=== PATIENT | male | born 1940 | race Caucasian/White ===

== ENCOUNTER 2019-07-15 06:10 | Day surgery (SDC) | payer MEDICARE ==
[2019-07-15] VITALS (18 sets, daily range): BP systolic 130–174; BP diastolic 53–103
[~2019-07-15] VITALS: Ht 176.5 cm; Wt 82.8 kg
[2019-07-15] MEDS ORDERED: lidocaine 2% viscous 15 ML cup ***bronch room only MM ONE ×2 (06:30→07:32)
[2019-07-15] MEDS ORDERED: morphine 10mg/ml inj. IM ONE (06:30)
[2019-07-15] MEDS ORDERED: phenylephrine 1% Nasal spray (extra-strength) 15 ML bottle **bronch room NS ONE ×2 (06:35→07:32)
[2019-07-15] MEDS ORDERED: LIDOCAINE 4% (40MG/ML) topical solution 50ml **BRONCH ONLY MM ONE (06:35)
[2019-07-15] MEDS ORDERED: LEVO112T5 PO (06:40)
[2019-07-15] MEDS ORDERED: INDO-12 PO (06:40)
[2019-07-15] MEDS ORDERED: METO25TA6 PO (06:40)
[2019-07-15 06:47] LABS: BASOPHILS # (AUTO) 0.1 X10'3 (0-0.2); BASOPHILS % (AUTO) 1.1 % (0-1); EOSINOPHILS # (AUTO) 0.1 X10'3 (0-0.9); EOSINOPHILS % (AUTO) 2.6 % (0-6); HEMATOCRIT 44.1 % (42.0-52.0); HEMOGLOBIN 15.6 g/dl (14.0-17.9); LYMPHOCYTES # (AUTO) 1.7 X10'3 (1.1-4.8); LYMPHOCYTES % (AUTO) 29.2 % (21-51); MEAN CORPUSCULAR HEMOGLOBIN 32.1 PG (27.0-31.0); MEAN CORPUSCULAR HGB CONC 35.5 g/dL (33.0-36.5); MEAN CORPUSCULAR VOLUME 90.4 FL (78-98); MEAN PLATELET VOLUME 7.7 FL (7.4-10.4); MONOCYTES # (AUTO) 0.5 X10'3 (0-0.9); NEUTROPHILS # (AUTO) 3.4 X10'3 (1.8-7.7); NEUTROPHILS % (AUTO) 59.1 % (42-75); PLATELET COUNT 213 X10'3 (140-440); RED BLOOD COUNT 4.88 X10'6 (4.70-6.10); RED CELL DISTRIBUTION WIDTH 13.3 % (11.5-14.5); WHITE BLOOD COUNT 5.7 X10'3 (4.5-11.0)
[2019-07-15] MEDS ORDERED: ZINC50TA60 (06:56)
[2019-07-15] MEDS ORDERED: [UNRECOGNIZED DRUG - CODE] PO (06:56)
[2019-07-15] MEDS ORDERED: LACT1CAP73 PO (06:56)
[2019-07-15] MEDS ORDERED: UBID100C45 PO (06:56)
[2019-07-15] MEDS ORDERED: VITA1CAP (06:56)
[2019-07-15] MEDS ORDERED: MULT-1085 PO (06:56)
[2019-07-15] MEDS ORDERED: [UNRECOGNIZED DRUG - CODE] (06:56)
[2019-07-15] MEDS ORDERED: ASCO500C15 PO (06:56)
[2019-07-15] MEDS ORDERED: ESOM20CA38 (06:56)
[2019-07-15] MEDS ORDERED: OMEG1CAP13 PO (06:56)
[2019-07-15] MEDS ORDERED: ATOR40TA PO (06:56)
[2019-07-15] MEDS ORDERED: fentaNYL/PF 50MCG/1 ML 2ML syringe IV STA (07:23)
[2019-07-15] MEDS ORDERED: MIDAZolam 5mg/ml 2ml vial IV STA (07:23)
[2019-07-15] MEDS ORDERED: LIDOCAINE 4% (40MG/ML) topical solution 50ml **BRONCH ONLY ONE (07:32)
== END 2019-07-15 10:50 | disposition home or self-care (01) ==
LOC: SSTAY O 06:10
PROVIDERS: ATTEND Internal Medicine Pulmonary Disease
DX: R04.2 Hemoptysis (principal); R91.1 Solitary pulmonary nodule; I10 Essential (primary) hypertension; E78.5 Hyperlipidemia, unspecified; I25.2 Old myocardial infarction; I25.10 Atherosclerotic heart disease of native coronary artery without angina pectoris; Z98.61 Coronary angioplasty status; Z77.090 Contact with and (suspected) exposure to asbestos; Z85.3 Personal history of malignant neoplasm of breast; Z79.899 Other long term (current) drug therapy; Z82.49 Family history of ischemic heart disease and other diseases of the circulatory system
CPT/HCPCS: 31622; 36415; 82378; 85025; 87070; 94640; 94760; J2250; J2270; J3010; 76499; 88108; 88305

== ENCOUNTER 2019-08-14 05:05 | Inpatient (IN) | payer MEDICARE, OTHER ==
[2019-08-13 14:19] LABS: CLARITY,URINE CLEAR (Clear); COLOR,URINE STRAW (Yellow); GLUCOSE, URINE NEGATIVE (Neg); KETONES,URINE NEGATIVE (Neg); LEUKOCYTE ESTERASE ,URINE NEGATIVE (Neg); NITRITES, URINE NEGATIVE (Neg); OCCULT BLOOD,URINE NEGATIVE (Neg); PH,URINE 5.5 (4.8-8.0); PROTEIN,URINE NEGATIVE (Neg); UROBILINOGEN,URINE 0.2 E.U/dL (0.2-1.0)
[2019-08-13 14:21] LABS: BASOPHILS % (AUTO) 0.4 % (0-1); EOSINOPHILS # (AUTO) 0.1 X10'3 (0-0.9); EOSINOPHILS % (AUTO) 0.8 % (0-6); LYMPHOCYTES # (AUTO) 1.2 X10'3 (1.1-4.8); LYMPHOCYTES % (AUTO) 18.8 % (21-51); MEAN CORPUSCULAR HEMOGLOBIN 32.1 PG (27.0-31.0); MEAN CORPUSCULAR HGB CONC 34.8 g/dL (33.0-36.5); MEAN CORPUSCULAR VOLUME 92.4 FL (78-98); MEAN PLATELET VOLUME 8.5 FL (7.4-10.4); MONOCYTES # (AUTO) 0.6 X10'3 (0-0.9); NEUTROPHILS # (AUTO) 4.5 X10'3 (1.8-7.7); PRE OP HEMATOCRIT 44.2 % (42.0-52.0); PRE OP HEMOGLOBIN 15.4 g/dL (14.0-17.9); PRE OP PLATELET COUNT 200 X10'3 (140-440); RED BLOOD COUNT 4.78 X10'6 (4.70-6.10); RED CELL DISTRIBUTION WIDTH 13.3 % (11.5-14.5)
[2019-08-13 14:33] LABS: PRE OP INR 1.1 INR
[2019-08-13 14:35] LABS: ABG BASE EXCESS -2.9 mmol/L (-2.0-3.0); ABG HCO3 19.5 mmol/L (22.0-26.0); ABG OXYGEN SATURATION 96.5 % (95-98); ABG PCO2 (T) 28.6 mmHg (35.0-45.0); ABG PH (T) 7.451 (7.350-7.450); ABG PO2 (T) 85.3 mmHg (83-108); ALLEN'S TEST Positive; FCOHb 0.8 % (0.5-1.5); FMetHb 0.2 % (0.3-1.12); FO2Hb 95.5 % (94-100); TOTAL HEMOGLOBIN 15.8 G/dl (14.0-17.9)
[2019-08-13 14:41] LABS: UA COLLECTION TYPE CLN CATCH MIDSTREAM
[2019-08-13 14:43] LABS: HEMOGLOBIN A1C 5.4 % (4.5-6.2)
[2019-08-13 14:48] LABS: ALBUMIN 3.7 G/DL (3.4-5.0); ALBUMIN/GLOBULIN RATIO 1.2 (1.1-1.5); ALKALINE PHOSPHATASE 96 IU/L (46-116); BLOOD UREA NITROGEN 16 MG/DL (7-18); BUN/CREATININE RATIO 16.3 (5.4-32.0); CALCIUM 8.5 MG/DL (8.5-10.1); CHLORIDE 106 MMOL/L (99-107); CREATININE 0.98 MG/DL (0.60-1.10); PRE OP ALT 25 U/L (30-65); PRE OP ANION GAP 6 (8-16); PRE OP AST 17 U/L (10-37); PRE OP BILIRUB, TOTAL 0.8 MG/DL (0.0-1.0); PRE OP GLUCOSE 78 MG/DL (70-104); PRE OP POTASSIUM 3.9 MMOL/L (3.4-5.1); PRE OP SODIUM 141 MMOL/L (135-145); TOTAL CARBON DIOXIDE 29.3 MMOL/L (24-32); TOTAL PROTEIN 6.8 G/DL (6.4-8.2); eGFR 74 ML/MIN
[2019-08-14] VITALS (26 sets, daily range): BP systolic 112–181; BP diastolic 53–98
[~2019-08-14] VITALS: Ht 175.3 cm; Wt 85.6 kg
[~2019-08-14 05:05] MED LIST: ASCO500C15 PO; ATOR40TA PO; ESOM20CA38; INDO-12 PO; LACT1CAP73 PO; LEVO112T5 PO; METO25TA6 PO; MULT-1085 PO; OMEG1CAP13 PO; UBID100C45 PO; VITA1CAP; ZINC50TA60; [UNRECOGNIZED DRUG - CODE]; [UNRECOGNIZED DRUG - CODE] PO; ringers solution, lacted 1,000 ML IV SCH
[2019-08-14] MEDS ORDERED: famotidine 20mg tablet PO ONE (05:30)
[2019-08-14] MEDS ORDERED: gabapentin 300mg capsule PO ONE (05:30)
[2019-08-14] MEDS ORDERED: DOCUMENT DATE & TIME OF BETA-BLOCKER PO ONE (05:30)
[2019-08-14] MEDS ORDERED: albuterol 2.5 MG/3 ML nebule NEB ONE (05:30)
[2019-08-14] MEDS ORDERED: cefazolin/dext.iso 2gm/100ml 100 ML IV ONE (05:30)
[2019-08-14] MEDS ORDERED: LIDOcaine 1% (10mg/ml) 2ml vial ONE (05:53)
[2019-08-14] MEDS ORDERED: sterile Talc 2 GM powder vial ONE (06:11)
[2019-08-14] MEDS ORDERED: BUPIVAcaine/PF 2.5 mg/ml (0.25%) 30ml vial ONE ×2 (06:11→11:35)
[2019-08-14] MEDS ORDERED: LIDOcaine 1%/PF 5ML 10 MG/ML VIAL ONE (06:13)
[2019-08-14] MEDS ORDERED: sevoflurane 250ml liquid IH ONE (06:46)
[2019-08-14] MEDS ORDERED: ePHEDrine 50MG/ML INJ. ONE (06:46)
[2019-08-14] MEDS ORDERED: midazolam 2 mg/2 ml injection ONE ×2 (06:51→06:53)
[2019-08-14] MEDS ORDERED: fentaNYL /PF 50mcg/ml 5ml ampule ONE (06:51)
[2019-08-14] MEDS ORDERED: rocuronium 10mg/ml inj IV ONE ×2 (07:20→08:01)
[2019-08-14] MEDS ORDERED: propofol inj 20 ML IV ONE (07:20)
[2019-08-14] MEDS ORDERED: albumin (Human) 5% 250ml 250 ML IV ONE (08:24)
[2019-08-14] MEDS ORDERED: ringers solution, lacted 1,000 ML IV SCH (08:44)
[2019-08-14] MEDS ORDERED: ondansetron/PF 4mg/2ml inj IV PRN ×2 (08:45→12:25)
[2019-08-14] MEDS ORDERED: proCHLORperazine 10 MG/2 ml inj IV PRN (08:45)
[2019-08-14] MEDS ORDERED: ketorolac trometh. 30mg/ml inj. IV ONE (08:45)
[2019-08-14] MEDS ORDERED: meperidine/PF 25mg/ml syringe IV PRN ×3 (08:45)
[2019-08-14] MEDS ORDERED: morphine 4 MG/ML inj SYRINge IV PRN ×4 (08:45→12:25)
[2019-08-14] MEDS ORDERED: acetaminophen 1,000mg/100ml IV 100 ML IV ONE (11:17)
[2019-08-14] MEDS ORDERED: glycopyrrolate 0.2mg/ml inj ONE (11:42)
[2019-08-14] MEDS ORDERED: neostigmine methylsulfate 1 MG/ML 10ml vial ONE (11:42)
[2019-08-14] MEDS ORDERED: metoclopramide 5 mg/ml inj IV PRN (12:25)
[2019-08-14] MEDS ORDERED: HYDROcodone/acetaminophen 10/325mg tab PO PRN (12:25)
[2019-08-14] MEDS ORDERED: naloxone 0.4 mg/ml inj IV PRN (12:25)
[2019-08-14] MEDS ORDERED: albuterol 2.5 MG/3 ML nebule NEB PRN (12:25)
--- NOTE | 2019-08-14 12:33 | NUR ---
Received from OR via BED, accompanied by Anesthesiologist DR MCDUFFIE and report given by Anesthesiologist. PT VERY DROWSY, NO S/S OF DISTRESS/DISCOMFORT, RIGHT CHEST W/ISLAND DRSGS COVERING INCISIONS CDI, SINGLE CHEST TUBE TO RIGHT CHEST W/SANGUINOUS DRAINAGE IN TUBING, ATTACHED TO SUCTION 20MMGH, NO AIR LEAK NOTED, ADAM CATHETER W/YELLOW URINE TO GRAVTIY DRAINAGE. Addendum: 08/14/19 at 1518 by Kathryn Hallman RN Amended: Links added.
--- NOTE | 2019-08-14 13:57 | NUR ---
Patient in room PAS IN 900. I have received report from Kathryn BRAXTON and had the opportunity to ask questions and assume patient care.
--- NOTE | 2019-08-14 14:33 | NUR ---
Report called to receiving nurse. ARTERIAL LINE D/CD, CANNULA INTACT, PRESSURE HELD, 4X4 W/COBAN APPLIED, NO BLEDDING OR SWELLING. Transferred via BED ON CM,1 BAG OF Belongings SENT W/PT TO ROOM 308, RECEIVING RN AT BEDSIDE TO RECEIVE PT, PTS FAMILY PRESENT. BLL, CALL LIGHT GIVEN, KRYSTIAN RALILS UP X2. Special Issues communicated to receiving nurse. YES. Addendum: 08/14/19 at 1521 by Kathryn Hallman RN Amended: Links added.
[2019-08-14 15:04] LABS: BASOPHILS % (AUTO) 0.4 % (0-1); EOSINOPHILS % (AUTO) 0.1 % (0-6); HEMATOCRIT 40.4 % (42.0-52.0); LYMPHOCYTES # (AUTO) 0.8 X10'3 (1.1-4.8); LYMPHOCYTES % (AUTO) 6.7 % (21-51); MEAN CORPUSCULAR HEMOGLOBIN 31.7 PG (27.0-31.0); MEAN CORPUSCULAR HGB CONC 34.5 g/dL (33.0-36.5); MEAN CORPUSCULAR VOLUME 91.9 FL (78-98); MEAN PLATELET VOLUME 8.3 FL (7.4-10.4); MONOCYTES # (AUTO) 0.8 X10'3 (0-0.9); MONOCYTES % (AUTO) 6.7 % (2-12); NEUTROPHILS # (AUTO) 9.9 X10'3 (1.8-7.7); NEUTROPHILS % (AUTO) 86.1 % (42-75); PLATELET COUNT 165 X10'3 (140-440); RED CELL DISTRIBUTION WIDTH 13.3 % (11.5-14.5); WHITE BLOOD COUNT 11.4 X10'3 (4.5-11.0)
[2019-08-14] MEDS: HYDROcodone/acetaminophen 10/325mg tab PO PRN ×2 (15:49→20:48)
[2019-08-14] MEDS: ceFAZolin inj. 1,000 MG in dextrose 5%-water 50ml 50 ML IV SCH (15:49)
[2019-08-14 16:11] LABS: ALBUMIN 3.3 G/DL (3.4-5.0); ANION GAP 10 (8-16); BLOOD UREA NITROGEN 21 MG/DL (7-18); BUN/CREATININE RATIO 17.8 (5.4-32.0); CALCIUM 8.3 MG/DL (8.5-10.1); CHLORIDE 106 MMOL/L (99-107); CREATININE 1.18 MG/DL (0.60-1.10); GLUCOSE 130 MG/DL (70-104); POTASSIUM 3.8 MMOL/L (3.5-5.1); SODIUM 140 MMOL/L (135-145); TOTAL CARBON DIOXIDE 23.7 MMOL/L (24-32); eGFR 60 ML/MIN
--- NOTE | 2019-08-14 18:20 | NUR ---
Problems reprioritized. Patient report given, questions answered & plan of care reviewed with Mu BRAXTON.
[2019-08-14] MEDS: docusate sod 100mg capsule PO SCH (20:46)
[2019-08-14] MEDS: gabapentin 300mg capsule PO SCH (20:46)
[2019-08-14] MEDS: metoprolol tartrate 25mg tablet PO SCH (20:46)
[2019-08-14] MEDS: indomethacin 25mg capsule PO SCH (20:47)
[2019-08-15 02:00] VITALS: BP 98/49
[2019-08-15 03:10] LABS: BASOPHILS % (AUTO) 0.5 % (0-1); EOSINOPHILS # (AUTO) 0.1 X10'3 (0-0.9); EOSINOPHILS % (AUTO) 0.9 % (0-6); HEMATOCRIT 38.8 % (42.0-52.0); HEMOGLOBIN 13.5 g/dl (14.0-17.9); LYMPHOCYTES # (AUTO) 1.9 X10'3 (1.1-4.8); LYMPHOCYTES % (AUTO) 19.6 % (21-51); MEAN CORPUSCULAR HEMOGLOBIN 31.9 PG (27.0-31.0); MEAN CORPUSCULAR HGB CONC 34.8 g/dL (33.0-36.5); MEAN CORPUSCULAR VOLUME 91.5 FL (78-98); MEAN PLATELET VOLUME 8.3 FL (7.4-10.4); MONOCYTES % (AUTO) 10.3 % (2-12); NEUTROPHILS # (AUTO) 6.6 X10'3 (1.8-7.7); NEUTROPHILS % (AUTO) 68.7 % (42-75); PLATELET COUNT 190 X10'3 (140-440); RED BLOOD COUNT 4.25 X10'6 (4.70-6.10); RED CELL DISTRIBUTION WIDTH 13.5 % (11.5-14.5); WHITE BLOOD COUNT 9.6 X10'3 (4.5-11.0)
[2019-08-15] MEDS: ceFAZolin inj. 1,000 MG in dextrose 5%-water 50ml 50 ML IV SCH (03:18)
[2019-08-15 03:29] LABS: ALANINE AMINOTRANSFERASE 29 U/L (12-78); ALBUMIN 3.2 G/DL (3.4-5.0); ALBUMIN/GLOBULIN RATIO 1.1 (1.1-1.5); ALKALINE PHOSPHATASE 70 IU/L (46-116); ANION GAP 10 (8-16); ASPARTATE AMINO TRANSFERASE 22 U/L (10-37); BILIRUBIN,TOTAL 0.9 MG/DL (0.1-1.0); BLOOD UREA NITROGEN 20 MG/DL (7-18); BUN/CREATININE RATIO 15.5 (5.4-32.0); CALCIUM 7.9 MG/DL (8.5-10.1); CHLORIDE 103 MMOL/L (99-107); CREATININE 1.29 MG/DL (0.60-1.10); GLUCOSE 114 MG/DL (70-104); MAGNESIUM 1.6 MG/DL (1.5-2.4); POTASSIUM 3.9 MMOL/L (3.5-5.1); SODIUM 138 MMOL/L (135-145); TOTAL CARBON DIOXIDE 25.4 MMOL/L (24-32); eGFR 54 ML/MIN
[2019-08-15 06:00] VITALS: BP 110/62
[2019-08-15] MEDS: pantoprazole 40mg Tablet.DR PO SCH (07:41)
[2019-08-15] MEDS ORDERED: LYSINE 600 MG PO SCH (08:00)
[2019-08-15] MEDS: docusate sod 100mg capsule PO SCH ×2 (08:00→19:24)
[2019-08-15] MEDS ORDERED: non-formulary drug (Ubidecarenone (Co Q-10) 100 MG) PO SCH (08:00)
[2019-08-15] MEDS: indomethacin 25mg capsule PO SCH ×2 (09:23→19:25)
[2019-08-15] MEDS: gabapentin 300mg capsule PO SCH ×2 (09:24→19:24)
[2019-08-15] MEDS: levoTHYROXINE 112mcg tablet PO SCH (09:25)
[2019-08-15] MEDS: ascorbic acid 500mg tablet PO SCH (09:26)
[2019-08-15] MEDS: metoprolol tartrate 25mg tablet PO SCH ×2 (09:26→19:25)
[2019-08-15] MEDS: OMEGA-3/DHA/EPA/FISH OIL 1 EACH CAPSULE.DR PO SCH (10:58)
[2019-08-15 11:00] VITALS: BP 103/61
[2019-08-15] MEDS: magnesium hydroxide 30ml (MOM) UD suspension PO PRN (11:00)
[2019-08-15 13:05] LABS: ALBUMIN 3.2 G/DL (3.4-5.0); ANION GAP 8 (8-16); BLOOD UREA NITROGEN 19 MG/DL (7-18); CALCIUM 8.3 MG/DL (8.5-10.1); CHLORIDE 102 MMOL/L (99-107); CREATININE 1.27 MG/DL (0.60-1.10); GLUCOSE 102 MG/DL (70-104); POTASSIUM 3.9 MMOL/L (3.5-5.1); SODIUM 136 MMOL/L (135-145); TOTAL CARBON DIOXIDE 25.8 MMOL/L (24-32); eGFR 55 ML/MIN
[2019-08-15] MEDS: HYDROcodone/acetaminophen 10/325mg tab PO PRN ×2 (13:36→19:38)
[2019-08-15 15:00] VITALS: BP 123/61
[2019-08-15 18:00] VITALS: BP 136/69
--- NOTE | 2019-08-15 18:00 | NUR ---
Problems reprioritized. Patient report given, questions answered & plan of care reviewed with IRAIS Dobbins.
[2019-08-15] MEDS: atorvastatin 20mg tablet PO SCH (21:30)
[2019-08-15 22:00] VITALS: BP 137/79
[2019-08-16] VITALS (11 sets, daily range): BP systolic 100–124; BP diastolic 46–77
[2019-08-16 03:32] LABS: BASOPHILS % (AUTO) 0.4 % (0-1); EOSINOPHILS # (AUTO) 0.1 X10'3 (0-0.9); EOSINOPHILS % (AUTO) 1.3 % (0-6); HEMATOCRIT 38.6 % (42.0-52.0); HEMOGLOBIN 13.3 g/dl (14.0-17.9); LYMPHOCYTES # (AUTO) 1.5 X10'3 (1.1-4.8); LYMPHOCYTES % (AUTO) 17.8 % (21-51); MEAN CORPUSCULAR HEMOGLOBIN 31.9 PG (27.0-31.0); MEAN CORPUSCULAR HGB CONC 34.5 g/dL (33.0-36.5); MEAN CORPUSCULAR VOLUME 92.4 FL (78-98); MEAN PLATELET VOLUME 8.5 FL (7.4-10.4); MONOCYTES % (AUTO) 12.1 % (2-12); NEUTROPHILS # (AUTO) 5.8 X10'3 (1.8-7.7); NEUTROPHILS % (AUTO) 68.4 % (42-75); PLATELET COUNT 161 X10'3 (140-440); RED BLOOD COUNT 4.18 X10'6 (4.70-6.10); RED CELL DISTRIBUTION WIDTH 13.3 % (11.5-14.5); WHITE BLOOD COUNT 8.5 X10'3 (4.5-11.0)
[2019-08-16 03:47] LABS: ALANINE AMINOTRANSFERASE 17 U/L (12-78); ALBUMIN 2.9 G/DL (3.4-5.0); ANION GAP 9 (8-16); ASPARTATE AMINO TRANSFERASE 23 U/L (10-37); BILIRUBIN,TOTAL 0.8 MG/DL (0.1-1.0); BLOOD UREA NITROGEN 16 MG/DL (7-18); BUN/CREATININE RATIO 14.4 (5.4-32.0); CHLORIDE 106 MMOL/L (99-107); CREATININE 1.11 MG/DL (0.60-1.10); GLUCOSE 111 MG/DL (70-104); MAGNESIUM 1.9 MG/DL (1.5-2.4); SODIUM 141 MMOL/L (135-145); TOTAL PROTEIN 5.7 G/DL (6.4-8.2); eGFR 64 ML/MIN
[2019-08-16 03:48] LABS: ALKALINE PHOSPHATASE 67 IU/L (46-116)
--- NOTE | 2019-08-16 05:43 | NUR ---
called Dr. Chun regarding the patient converting from Normal sinus rhythm to A Fib. He ordered amiodarone drip per protocol. No other orders were given at this time.
[2019-08-16] MEDS: amiodarone/D5 360MG/200ML BAG 200 ML IV SCH ×4 (05:53→21:31)
--- NOTE | 2019-08-16 06:05 | NUR ---
Patient in room MED 308. I have received report from IRAIS Dobbins and had the opportunity to ask questions and assume patient care.
[2019-08-16] MEDS: OMEGA-3/DHA/EPA/FISH OIL 1 EACH CAPSULE.DR PO SCH (08:13)
[2019-08-16] MEDS: indomethacin 25mg capsule PO SCH ×2 (08:13→19:23)
[2019-08-16] MEDS: magnesium hydroxide 30ml (MOM) UD suspension PO PRN (08:13)
[2019-08-16] MEDS: docusate sod 100mg capsule PO SCH ×2 (08:13→19:23)
[2019-08-16] MEDS: gabapentin 300mg capsule PO SCH (08:13)
[2019-08-16] MEDS: levoTHYROXINE 112mcg tablet PO SCH (08:14)
[2019-08-16] MEDS: pantoprazole 40mg Tablet.DR PO SCH (08:14)
[2019-08-16] MEDS: ascorbic acid 500mg tablet PO SCH (08:14)
[2019-08-16] MEDS: metoprolol tartrate 25mg tablet PO SCH ×2 (08:14→19:23)
[2019-08-16] MEDS ORDERED: magnesium citrate 296ml oral solution PO ONE (09:30)
[2019-08-16 12:46] LABS: ANION GAP 4 (8-16); BLOOD UREA NITROGEN 13 MG/DL (7-18); BUN/CREATININE RATIO 12.1 (5.4-32.0); CALCIUM 8.2 MG/DL (8.5-10.1); CHLORIDE 107 MMOL/L (99-107); CREATININE 1.07 MG/DL (0.60-1.10); GLUCOSE 86 MG/DL (70-104); SODIUM 140 MMOL/L (135-145); TOTAL CARBON DIOXIDE 29.1 MMOL/L (24-32); eGFR 67 ML/MIN
--- NOTE | 2019-08-16 18:00 | NUR ---
Problems reprioritized. Patient report given, questions answered & plan of care reviewed with IRAIS Dobbins.
--- NOTE | 2019-08-16 18:05 | NUR ---
Student documentation: I have reviewed and agree with all interventions, assessments performed and documented by Radha BRAXTON.
[2019-08-16] MEDS: atorvastatin 20mg tablet PO SCH (19:23)
[2019-08-16] MEDS: HYDROcodone/acetaminophen 10/325mg tab PO PRN (21:32)
[2019-08-17] VITALS (15 sets, daily range): BP systolic 110–147; BP diastolic 57–94
[2019-08-17 03:32] LABS: BASOPHILS % (AUTO) 0.4 % (0-1); EOSINOPHILS # (AUTO) 0.2 X10'3 (0-0.9); HEMATOCRIT 37.2 % (42.0-52.0); HEMOGLOBIN 12.8 g/dl (14.0-17.9); LYMPHOCYTES # (AUTO) 1.7 X10'3 (1.1-4.8); LYMPHOCYTES % (AUTO) 22.4 % (21-51); MEAN CORPUSCULAR HEMOGLOBIN 31.9 PG (27.0-31.0); MEAN CORPUSCULAR HGB CONC 34.5 g/dL (33.0-36.5); MEAN CORPUSCULAR VOLUME 92.5 FL (78-98); MEAN PLATELET VOLUME 8.4 FL (7.4-10.4); MONOCYTES % (AUTO) 12.5 % (2-12); NEUTROPHILS # (AUTO) 4.8 X10'3 (1.8-7.7); NEUTROPHILS % (AUTO) 61.7 % (42-75); PLATELET COUNT 154 X10'3 (140-440); RED BLOOD COUNT 4.02 X10'6 (4.70-6.10); RED CELL DISTRIBUTION WIDTH 13.2 % (11.5-14.5); WHITE BLOOD COUNT 7.7 X10'3 (4.5-11.0)
[2019-08-17 03:43] LABS: ALANINE AMINOTRANSFERASE 18 U/L (12-78); ALBUMIN 2.7 G/DL (3.4-5.0); ALBUMIN/GLOBULIN RATIO 0.9 (1.1-1.5); ALKALINE PHOSPHATASE 69 IU/L (46-116); ANION GAP 6 (8-16); ASPARTATE AMINO TRANSFERASE 22 U/L (10-37); BILIRUBIN,TOTAL 0.6 MG/DL (0.1-1.0); BLOOD UREA NITROGEN 15 MG/DL (7-18); BUN/CREATININE RATIO 13.9 (5.4-32.0); CALCIUM 7.9 MG/DL (8.5-10.1); CHLORIDE 107 MMOL/L (99-107); CREATININE 1.08 MG/DL (0.60-1.10); GLUCOSE 116 MG/DL (70-104); MAGNESIUM 2.2 MG/DL (1.5-2.4); SODIUM 140 MMOL/L (135-145); TOTAL PROTEIN 5.7 G/DL (6.4-8.2); eGFR 66 ML/MIN
--- NOTE | 2019-08-17 06:05 | NUR ---
Patient in room MED 308. I have received report from IRAIS Dobbins and had the opportunity to ask questions and assume patient care.
--- NOTE | 2019-08-17 06:26 | NUR ---
Problems reprioritized. Patient report given to Betzy-RN and IsaiRN, questions answered & plan of care reviewed with .
[2019-08-17] MEDS: pantoprazole 40mg Tablet.DR PO SCH (07:34)
[2019-08-17] MEDS: indomethacin 25mg capsule PO SCH ×2 (07:35→19:47)
[2019-08-17] MEDS: OMEGA-3/DHA/EPA/FISH OIL 1 EACH CAPSULE.DR PO SCH (07:35)
[2019-08-17] MEDS: ascorbic acid 500mg tablet PO SCH (07:35)
[2019-08-17] MEDS: levoTHYROXINE 112mcg tablet PO SCH (07:35)
[2019-08-17] MEDS: metoprolol tartrate 25mg tablet PO SCH ×2 (07:36→19:47)
[2019-08-17] MEDS: docusate sod 100mg capsule PO SCH ×2 (08:00→19:46)
--- NOTE | 2019-08-17 08:30 | NUR ---
ORDERS FROM DR. JACOBS TO JED AMIODARONE GTT AND START PO AMIODARONE AT 1999. DISCUSSED WITH SUKHJINDER ALEMAN RN. JOANA GTT JED'[place]mond. YADI CATALAN.
[2019-08-17] MEDS: albuterol 2.5 MG/3 ML nebule NEB SCH ×5 (08:39→23:00)
[2019-08-17] MEDS ORDERED: HYDR-4353 PO (08:53)
[2019-08-17] MEDS ORDERED: DOCU100C40 PO (08:53)
[2019-08-17] MEDS ORDERED: amiodarone 200mg tablet PO ONE (09:10)
--- NOTE | 2019-08-17 09:15 | NUR ---
SPOKE WITH DR. JACOBS RECEIVED ORDER TO GIVE ONE 200MG DOSE OF AMIODARONE PO NOW AND THEN PROCEED WITH SCHEDULED DOSES STARTING 08/17 AT 1999.
--- NOTE | 2019-08-17 13:10 | NUR ---
PATIENT CONVERTED BACK INTO A. FIB AT 1223. SPOKE WITH DR. JACOBS, INFORMED OF RHYTHM CHANGE. RECEIVED ORDERS FOR A LOADING DOSE OF IV AMIODARONE AND INITIATION OF AMIODARONE GTT PER PROTOCOL.
[2019-08-17] MEDS ORDERED: amiodarone 150mg/dext, iso-os 100 ML IV ONE (13:20)
[2019-08-17] MEDS: amiodarone/D5 360MG/200ML BAG 200 ML IV SCH ×2 (13:38→20:00)
[2019-08-17] MEDS: HYDROcodone/acetaminophen 10/325mg tab PO PRN (17:08)
--- NOTE | 2019-08-17 18:00 | NUR ---
Patient in room MED 308. I have received report from Angie BRAXTON and had the opportunity to ask questions and assume patient care.
[2019-08-17] MEDS: amiodarone 200mg tablet PO SCH (19:48)
[2019-08-17] MEDS: atorvastatin 20mg tablet PO SCH (19:48)
[2019-08-18] VITALS (10 sets, daily range): BP systolic 96–174; BP diastolic 67–86
[2019-08-18] MEDS: amiodarone/D5 360MG/200ML BAG 200 ML IV SCH ×2 (01:28→07:20)
[2019-08-18] MEDS: albuterol 2.5 MG/3 ML nebule NEB SCH ×2 (02:54→07:00)
[2019-08-18 04:30] LABS: BASOPHILS % (AUTO) 0.4 % (0-1); EOSINOPHILS # (AUTO) 0.2 X10'3 (0-0.9); EOSINOPHILS % (AUTO) 3.1 % (0-6); HEMATOCRIT 39.5 % (42.0-52.0); HEMOGLOBIN 13.8 g/dl (14.0-17.9); LYMPHOCYTES # (AUTO) 1.6 X10'3 (1.1-4.8); LYMPHOCYTES % (AUTO) 21.6 % (21-51); MEAN CORPUSCULAR HEMOGLOBIN 32.3 PG (27.0-31.0); MEAN CORPUSCULAR HGB CONC 34.9 g/dL (33.0-36.5); MEAN CORPUSCULAR VOLUME 92.4 FL (78-98); MEAN PLATELET VOLUME 8.4 FL (7.4-10.4); MONOCYTES # (AUTO) 0.8 X10'3 (0-0.9); MONOCYTES % (AUTO) 10.5 % (2-12); NEUTROPHILS # (AUTO) 4.8 X10'3 (1.8-7.7); NEUTROPHILS % (AUTO) 64.4 % (42-75); PLATELET COUNT 178 X10'3 (140-440); RED BLOOD COUNT 4.27 X10'6 (4.70-6.10); RED CELL DISTRIBUTION WIDTH 13.1 % (11.5-14.5); WHITE BLOOD COUNT 7.4 X10'3 (4.5-11.0)
[2019-08-18 04:48] LABS: ALANINE AMINOTRANSFERASE 21 U/L (12-78); ALBUMIN 2.7 G/DL (3.4-5.0); ALBUMIN/GLOBULIN RATIO 0.8 (1.1-1.5); ALKALINE PHOSPHATASE 64 IU/L (46-116); ANION GAP 6 (8-16); ASPARTATE AMINO TRANSFERASE 18 U/L (10-37); BILIRUBIN,TOTAL 0.5 MG/DL (0.1-1.0); BLOOD UREA NITROGEN 11 MG/DL (7-18); BUN/CREATININE RATIO 9.6 (5.4-32.0); CALCIUM 8.4 MG/DL (8.5-10.1); CHLORIDE 107 MMOL/L (99-107); CREATININE 1.15 MG/DL (0.60-1.10); GLUCOSE 104 MG/DL (70-104); POTASSIUM 3.8 MMOL/L (3.5-5.1); SODIUM 143 MMOL/L (135-145); TOTAL PROTEIN 5.9 G/DL (6.4-8.2); eGFR 62 ML/MIN
--- NOTE | 2019-08-18 06:00 | NUR ---
Patient in room MED 308. I have received report from IRAIS Shore and had the opportunity to ask questions and assume patient care.
[2019-08-18] MEDS: OMEGA-3/DHA/EPA/FISH OIL 1 EACH CAPSULE.DR PO SCH (07:20)
[2019-08-18] MEDS: ascorbic acid 500mg tablet PO SCH (07:20)
[2019-08-18] MEDS: levoTHYROXINE 112mcg tablet PO SCH (07:20)
[2019-08-18] MEDS: amiodarone 200mg tablet PO SCH ×4 (07:20→20:13)
[2019-08-18] MEDS: pantoprazole 40mg Tablet.DR PO SCH (07:20)
[2019-08-18] MEDS: indomethacin 25mg capsule PO SCH ×2 (07:20→20:13)
[2019-08-18] MEDS: docusate sod 100mg capsule PO SCH ×2 (07:22→20:13)
[2019-08-18] MEDS: metoprolol tartrate 25mg tablet PO SCH ×2 (07:24→20:15)
--- NOTE | 2019-08-18 09:57 | NUR ---
AMIODARONE GTT OFF AT 0957. PT IN NSR HR 70.
--- NOTE | 2019-08-18 12:00 | NUR ---
DANIELLE OGRDON CALLED 1010: DANIELLE WAS CALLED REGARDING PT'S ASYMMETRICAL CHEST, INFORMED OF INCREASED TENDERNESS IN RIGHT UPPER CHEST, INCREASED COARSE CRACKLES AUSCULTATED, AND CREPITUS FELT ON ANTERIOR AND POSTERIOR SURGICAL SIDE. PT ASYMPTOMATIC, NO SOB, O2 SATURATION 94% RA. 1100: ADNIELLE AT BEDSIDE; REPEAT CXR ORDERED. 1200: REPEAT CXR RESULT UNCHANGED FROM THIS MORNING. WILL CONTINUE TO MONITOR.
[2019-08-18 13:25] LABS: ALBUMIN 3.1 G/DL (3.4-5.0); ANION GAP 3 (8-16); BLOOD UREA NITROGEN 13 MG/DL (7-18); BUN/CREATININE RATIO 11.9 (5.4-32.0); CALCIUM 8.4 MG/DL (8.5-10.1); CHLORIDE 104 MMOL/L (99-107); CREATININE 1.09 MG/DL (0.60-1.10); GLUCOSE 106 MG/DL (70-104); POTASSIUM 4.1 MMOL/L (3.5-5.1); SODIUM 139 MMOL/L (135-145); TOTAL CARBON DIOXIDE 32.5 MMOL/L (24-32); eGFR 66 ML/MIN
--- NOTE | 2019-08-18 17:50 | NUR ---
I have reviewed and agree with all interventions, assessments performed and documented by Radha BRAXTON .
--- NOTE | 2019-08-18 18:00 | NUR ---
Patient in room MED 308. I have received report from Radha BRAXTON and had the opportunity to ask questions and assume patient care.
--- NOTE | 2019-08-18 18:30 | NUR ---
pt caught lower right chest dressing on clothing and pulled it off, dressing and wound with sutures were clean dry and intact, i replaced it with more 4x4's and foam tape.
[2019-08-18] MEDS: atorvastatin 20mg tablet PO SCH (20:13)
--- NOTE | 2019-08-18 20:30 | NUR ---
noticed iv in left arm that was SL was red, firm, painful, and streaking up the arm, asked charge nurser to come take a look, she DC's IV and there is warm compress on it
--- NOTE | 2019-08-18 21:02 | NUR ---
Called Dr. Chun regarding the extravasation and red streaking up the arm from the pts DC'd PIV, Lay said to keep warm compress on it, and that pt needs another IV access
[2019-08-19 00:42] LABS: BASOPHILS % (AUTO) 0.4 % (0-1); EOSINOPHILS # (AUTO) 0.2 X10'3 (0-0.9); EOSINOPHILS % (AUTO) 2.1 % (0-6); HEMATOCRIT 37.8 % (42.0-52.0); HEMOGLOBIN 13.5 g/dl (14.0-17.9); LYMPHOCYTES # (AUTO) 1.4 X10'3 (1.1-4.8); LYMPHOCYTES % (AUTO) 16.8 % (21-51); MEAN CORPUSCULAR HEMOGLOBIN 32.2 PG (27.0-31.0); MEAN CORPUSCULAR HGB CONC 35.6 g/dL (33.0-36.5); MEAN CORPUSCULAR VOLUME 90.4 FL (78-98); MEAN PLATELET VOLUME 8.4 FL (7.4-10.4); MONOCYTES # (AUTO) 0.8 X10'3 (0-0.9); MONOCYTES % (AUTO) 9.4 % (2-12); NEUTROPHILS % (AUTO) 71.3 % (42-75); PLATELET COUNT 196 X10'3 (140-440); RED BLOOD COUNT 4.18 X10'6 (4.70-6.10); RED CELL DISTRIBUTION WIDTH 13.4 % (11.5-14.5); WHITE BLOOD COUNT 8.5 X10'3 (4.5-11.0)
[2019-08-19 00:55] LABS: ALANINE AMINOTRANSFERASE 25 U/L (12-78); ALBUMIN/GLOBULIN RATIO 0.9 (1.1-1.5); ALKALINE PHOSPHATASE 74 IU/L (46-116); ANION GAP 8 (8-16); ASPARTATE AMINO TRANSFERASE 18 U/L (10-37); BILIRUBIN,TOTAL 0.8 MG/DL (0.1-1.0); BLOOD UREA NITROGEN 14 MG/DL (7-18); BUN/CREATININE RATIO 13.1 (5.4-32.0); CALCIUM 8.5 MG/DL (8.5-10.1); CHLORIDE 105 MMOL/L (99-107); CREATININE 1.07 MG/DL (0.60-1.10); GLUCOSE 108 MG/DL (70-104); MAGNESIUM 1.8 MG/DL (1.5-2.4); POTASSIUM 3.9 MMOL/L (3.5-5.1); SODIUM 141 MMOL/L (135-145); TOTAL CARBON DIOXIDE 28.4 MMOL/L (24-32); TOTAL PROTEIN 6.3 G/DL (6.4-8.2); eGFR 67 ML/MIN
[2019-08-19 02:00] VITALS: BP 135/71
[2019-08-19 06:00] VITALS: BP 157/87
--- NOTE | 2019-08-19 06:00 | NUR ---
Patient in room MED 308. I have received report from ORAL BRAXTON and had the opportunity to ask questions and assume patient care.
--- NOTE | 2019-08-19 06:00 | NUR ---
Problems reprioritized. Patient report given, questions answered & plan of care reviewed with Teresita BRAXTON.
[2019-08-19] MEDS ORDERED: potassium CL 10mEq/100ml bag 100 ML IV PRN (07:25)
[2019-08-19] MEDS ORDERED: potassium Cl 20 mEq SR tablet PO PRN (07:25)
[2019-08-19] MEDS ORDERED: magnesium 4gm in 100ml NS 100 ML IV PRN (07:25)
[2019-08-19] MEDS ORDERED: magnesium 2GM in 50ml NS 50 ML IV PRN (07:25)
[2019-08-19] MEDS: pantoprazole 40mg Tablet.DR PO SCH (08:02)
[2019-08-19] MEDS: metoprolol tartrate 25mg tablet PO SCH (08:03)
[2019-08-19] MEDS: OMEGA-3/DHA/EPA/FISH OIL 1 EACH CAPSULE.DR PO SCH (08:04)
[2019-08-19] MEDS: docusate sod 100mg capsule PO SCH (08:04)
[2019-08-19] MEDS: indomethacin 25mg capsule PO SCH (08:04)
[2019-08-19] MEDS: levoTHYROXINE 112mcg tablet PO SCH (08:04)
[2019-08-19] MEDS: ascorbic acid 500mg tablet PO SCH (08:04)
[2019-08-19] MEDS: amiodarone 200mg tablet PO SCH ×2 (08:04→14:11)
[2019-08-19] MEDS ORDERED: AMIO200T61 PO (09:28)
[2019-08-19 11:00] VITALS: BP 156/80
--- NOTE | 2019-08-19 12:19 | NUR ---
Initial: Pt admit w/ hemoptysis s/p RLL Lobectomy. PO 75-100% regular diet meeting needs. LBM 08/18 post-op. No nutrition concerns at this time. Will continue to monitor. Rec: 1. continue regular diet 2. wt per rx Addendum: 08/19/19 at [address] Amended: Links added.
--- NOTE | 2019-08-19 14:33 | NUR ---
Discussed patient discharge instructions, verbalized understanding, eager to go home. Called medications into [facility] pharmacy. IV dc'd and tele dc'd. Belongings sent home with patient. at bedside. Patient declined both vaccinations. Discharged without event via ambulation and [facility] staff, tolerated well.
== END 2019-08-19 14:33 | disposition home health service (06) | DRG 164 ==
LOC: PAS IN 05:05 → EDSTATUS 07:00 → MED 3N 14:30
PROVIDERS: ADMIT Thoracic Surgery (Cardiothoracic Vascular Surgery); ATTEND Thoracic Surgery (Cardiothoracic Vascular Surgery)
PROC: 07B74ZX Excision of Thorax Lymphatic, Percutaneous Endoscopic Approach, Diagnostic (ICD-10-PCS; 2019-08-14)
PROC: 02HV33Z Insertion of Infusion Device into Superior Vena Cava, Percutaneous Approach (ICD-10-PCS; 2019-08-14)
PROC: 3E0T3BZ Introduction of Anesthetic Agent into Peripheral Nerves and Plexi, Percutaneous Approach (ICD-10-PCS; 2019-08-14)
PROC: 0BTF4ZZ Resection of Right Lower Lung Lobe, Percutaneous Endoscopic Approach (ICD-10-PCS; principal; 2019-08-14 06:46)
DX: C7A.090 Malignant carcinoid tumor of the bronchus and lung (principal); M02.30 Reiter's disease, unspecified site; T79.7XXA Traumatic subcutaneous emphysema, initial encounter; R91.8 Other nonspecific abnormal finding of lung field; E03.9 Hypothyroidism, unspecified; E27.8 Other specified disorders of adrenal gland; E78.00 Pure hypercholesterolemia, unspecified; F12.90 Cannabis use, unspecified, uncomplicated; I10 Essential (primary) hypertension; I25.10 Atherosclerotic heart disease of native coronary artery without angina pectoris; I48.91 Unspecified atrial fibrillation; M19.90 Unspecified osteoarthritis, unspecified site; K59.00 Constipation, unspecified; Z80.3 Family history of malignant neoplasm of breast; Z82.0 Family history of epilepsy and other diseases of the nervous system; Z82.49 Family history of ischemic heart disease and other diseases of the circulatory system; Z82.5 Family history of asthma and other chronic lower respiratory diseases; I25.2 Old myocardial infarction; Z87.891 Personal history of nicotine dependence; Z98.61 Coronary angioplasty status
CPT/HCPCS: 36415; 36600; 71045; 71046; 80048; 80053; 81003; 82803; 82948; 83036; 83735; 84443; 85018; 85025; 85610; 85730; 86885; 86900; 86901; 87081; 88305; 88309; 88331; 88332; 88342; 88360; 93005; 94640; 94760; 97116; 97161; 97530; A4215; A4618; A6258; A6449; A7000; A7048; C1758; G0378; J0131; J0282; J0690; J1885; J2001; J2175; J2250; J2704; J2710; J3010; J3475; J3490; J7060; J7120; P9045